=== PATIENT | female | born 2000 | race Caucasian/White ===

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

== ENCOUNTER 2020-02-03 12:41 | Emergency (ER) | payer OTHER ==
[~2020-02-03] VITALS: Ht 160 cm; Wt 74.8 kg
[2020-02-03 13:58] LABS: BASOPHILS ABSOLUTE AUTO 0.02 K/mm3 (0.00-0.23); BASOPHILS PERCENT AUTO 0 % (0-2); EOSINOPHILS ABSOLUTE AUTO 0.09 K/mm3 (0.00-0.68); EOSINOPHILS PERCENT AUTO 1 % (0-6); Hematocrit 41.4 % (33.0-51.0); Hemoglobin 14.2 g/dL (11.5-16.0); IMMATURE GRAN ABSOLUTE AUTO 0.02 K/mm3 (0.00-0.10); IMMATURE GRAN PERCENT AUTO 0 % (0-1); LYMPHOCYTES ABSOLUTE AUTO 2.69 K/mm3 (0.84-5.20); LYMPHOCYTES PERCENT AUTO 31 % (21-46); MONOCYTES ABSOLUTE AUTO 0.51 K/mm3 (0.16-1.47); MONOCYTES PERCENT AUTO 6 % (4-13); Mean Corpuscular HGB 30.3 pg (26.0-34.0); Mean Corpuscular HGB Conc 34.3 g/dL (31.5-36.5); Mean Corpuscular Volume 89 fL (80-100); Mean Platelet Volume 10.5 fL (9.1-12.4); NEUTROPHILS ABSOLUTE AUTO 5.33 K/mm3 (1.96-9.15); NEUTROPHILS PERCENT AUTO 62 % (41-73); Platelet Count 268 K/mm3 (150-400); RDW Coefficient Variation 11.9 % (11.7-14.2); RDW Standard Deviation 38.1 fL (35.1-46.3); Red Blood Cell Count 4.68 M/mm3 (3.80-5.20); White Blood Cell Count 8.66 K/mm3 (4.00-11.30)
[2020-02-03 14:19] LABS: Anion Gap 7 mmol/L (6-16); Beta HCG, Quantitative, Serum 17 mIU/mL (0-3); Blood Urea Nitrogen 10 mg/dL (8-24); Bun/Creatinine Ratio 12.3 (12.0-20.0); CO2, Blood 24 mmol/L (21-32); Chloride, Blood 108 mmol/L (98-108); Creatinine, Blood 0.81 mg/dL (0.40-1.00); Glomerular Filtration Rate >60 (60-); Glucose, Blood 85 mg/dL (70-99); Potassium, Blood 3.5 mmol/L (3.5-5.5); Sodium, Blood 139 mmol/L (136-145)
[2020-02-03] MEDS ORDERED: IBUP800 PO (15:22)
== END 2020-02-03 15:15 | disposition home or self-care (01) ==
LOC: ER 12:41
PROVIDERS: Physician Assistant
DX: O03.9 Complete or unspecified spontaneous abortion without complication (principal); Z88.0 Allergy status to penicillin
CPT/HCPCS: 36415; 76801; 76817; 80048; 84702; 85025; 99284-25

== ENCOUNTER → 2020-12-16 | Outpatient (CLI) | payer OTHER ==
[~2020-12-16] MED LIST changes: +IBUP800 PO
[2020-12-16 17:18] LABS: U Amphetamine Screen Not Detected; U Barbituate Screen Not Detected; U Benzodiazapine Screen Not Detected; U Buprenorphine Screen Not Detected; U Cannabinoids Screen Not Detected; U Cocaine Screen Not Detected; U Methadone Screen Not Detected; U Methamphetamine Screen Not Detected; U Opiates Screen Not Detected; U Oxycodone Screen Not Detected; U Phencyclidine Screen Not Detected; U Propoxyphene Screen Not Detected
[2020-12-18 01:08] LABS: CHLAMYDIA TRACHOMATIS, NAA Negative (Negative)
== END ==
LOC: LAB SHORT 14:02 → LAB 14:02
PROVIDERS: Advanced Practice Midwife
DX: Z01.419 Encounter for gynecological examination (general) (routine) without abnormal findings (principal); Z88.0 Allergy status to penicillin
CPT/HCPCS: 87491; 87591; G0123

== ENCOUNTER → 2021-03-08 | Outpatient (CLI) | payer OTHER ==
[2021-03-09 11:03] LABS: Candida species (DNA Probe) Negative (NEGATIVE); G. vaginalis (DNA Probe) Negative (NEGATIVE); T. vaginalis (DNA Probe) Negative (NEGATIVE)
== END | disposition home or self-care (01) ==
LOC: LAB SHORT 17:18 → LAB 17:18
PROVIDERS: Obstetrics & Gynecology
DX: N89.8 Other specified noninflammatory disorders of vagina (principal)
CPT/HCPCS: 87480; 87510; 87660

== ENCOUNTER 2021-04-15 17:02 | Inpatient (IN) | payer OTHER ==
[~2021-04-15] VITALS: Ht 160 cm; Wt 84.0 kg
--- NOTE | 2021-04-15 17:21 | NUR ---
pt here for possible induction, is 28 11/23, baby is reported to be noncompatible with life, dr jacobo is contacting oren rossi head of ethics for the decision.
--- NOTE | 2021-04-15 17:50 | NUR ---
LATE ENTRY NEW ORDERS FROM DR ARANDA: START SEVERE HTN PROTOCOL LABETALOL WHEN GET IV ACCESS.(CALLED ICU FOR ULTRASOUND IV DUE TO NOT BEING ABLE TO FIND A VEIN QUICKELY) START MAGNESIUM SULFATE 4GM LOAD DOSE WITH 2GGM/HR TO FOLLOW
[2021-04-15 18:39] LABS: BASOPHILS ABSOLUTE AUTO 0.04 K/mm3 (0.00-0.23); BASOPHILS PERCENT AUTO 0 % (0-2); EOSINOPHILS ABSOLUTE AUTO 0.06 K/mm3 (0.00-0.68); EOSINOPHILS PERCENT AUTO 1 % (0-6); Hematocrit 32.2 % (33.0-51.0); Hemoglobin 11.4 g/dL (11.5-16.0); IMMATURE GRAN ABSOLUTE AUTO 0.05 K/mm3 (0.00-0.10); IMMATURE GRAN PERCENT AUTO 0 % (0-1); LYMPHOCYTES ABSOLUTE AUTO 2.58 K/mm3 (0.84-5.20); LYMPHOCYTES PERCENT AUTO 20 % (21-46); MONOCYTES ABSOLUTE AUTO 0.63 K/mm3 (0.16-1.47); MONOCYTES PERCENT AUTO 5 % (4-13); Mean Corpuscular HGB 31.2 pg (26.0-34.0); Mean Corpuscular HGB Conc 35.4 g/dL (31.5-36.5); Mean Corpuscular Volume 88 fL (80-100); Mean Platelet Volume 12.2 fL (9.1-12.4); NEUTROPHILS PERCENT AUTO 75 % (41-73); Platelet Count 186 K/mm3 (150-400); RDW Coefficient Variation 12.2 % (11.7-14.2); RDW Standard Deviation 39.5 fL (35.1-46.3); Red Blood Cell Count 3.65 M/mm3 (3.80-5.20); White Blood Cell Count 13.26 K/mm3 (4.00-11.30)
[2021-04-15 18:56] LABS: Influenza A, PCR NEGATIVE (NEGATIVE); Influenza B, PCR NEGATIVE (NEGATIVE); Resp Syncytial Virus, PCR NEGATIVE (NEGATIVE); SARS-Cov-2 (COVID-19) PCR, MMC NEGATIVE (NEGATIVE)
[2021-04-15] MEDS ORDERED: PRENATAL TABLE1 EAC2 (19:21)
[2021-04-15 19:33] LABS: Albumin/Globulin Ratio 0.5 (0.8-1.8); Bilirubin, Total 0.3 mg/dL (0.1-1.0); Bun/Creatinine Ratio 17.5 (12.0-20.0); Calcium, Blood 8.5 mg/dL (8.5-10.1); Creatinine, Blood 1.2 mg/dL (0.40-1.00); Potassium, Blood 3.7 mmol/L (3.5-5.5)
[2021-04-16 08:00] LABS: BASOPHILS ABSOLUTE AUTO 0.04 K/mm3 (0.00-0.23); BASOPHILS PERCENT AUTO 0 % (0-2); EOSINOPHILS PERCENT AUTO 0 % (0-6); Hematocrit 31.6 % (33.0-51.0); Hemoglobin 11.1 g/dL (11.5-16.0); IMMATURE GRAN PERCENT AUTO 1 % (0-1); LYMPHOCYTES ABSOLUTE AUTO 1.61 K/mm3 (0.84-5.20); LYMPHOCYTES PERCENT AUTO 8 % (21-46); MONOCYTES ABSOLUTE AUTO 0.39 K/mm3 (0.16-1.47); MONOCYTES PERCENT AUTO 2 % (4-13); Mean Corpuscular HGB 30.9 pg (26.0-34.0); Mean Corpuscular HGB Conc 35.1 g/dL (31.5-36.5); Mean Corpuscular Volume 88 fL (80-100); Mean Platelet Volume 11.8 fL (9.1-12.4); NEUTROPHILS ABSOLUTE AUTO 17.42 K/mm3 (1.96-9.15); NEUTROPHILS PERCENT AUTO 89 % (41-73); Platelet Count 195 K/mm3 (150-400); RDW Standard Deviation 38.7 fL (35.1-46.3); Red Blood Cell Count 3.59 M/mm3 (3.80-5.20); White Blood Cell Count 19.56 K/mm3 (4.00-11.30)
[2021-04-16 08:21] LABS: Alanine Aminotransfer (ALT/SGP 12 U/L (12-78); Albumin, Blood 1.8 g/dL (3.4-5.0); Albumin/Globulin Ratio 0.5 (0.8-1.8); Alk Phos 258 U/L (50-136); Anion Gap 8 mmol/L (6-16); Aspartate Aminotrans (AST/SGOT 15 U/L (12-37); Bilirubin, Total 0.2 mg/dL (0.1-1.0); Blood Urea Nitrogen 17 mg/dL (8-24); CO2, Blood 20 mmol/L (21-32); Calcium, Blood 7.8 mg/dL (8.5-10.1); Chloride, Blood 108 mmol/L (98-108); Globulin, Blood 3.8 g/dL (2.2-4.0); Glomerular Filtration Rate >60 (60-); Glucose, Blood 117 mg/dL (70-99); Potassium, Blood 4.7 mmol/L (3.5-5.5); Sodium, Blood 136 mmol/L (136-145); Total Protein, Blood 5.6 g/dL (6.4-8.2)
--- NOTE | 2021-04-16 13:15 | NUR ---
MOMS BLOOD DRAWN PER [facility] REQUEST. PAPER WORK WITH MOMS BLOOD, WALKED AND GAVE TO LAB, THEY ADDED BABY CORD BLOOD AND WERE PLANNING SENDIG OUT TODAY TO [facility]
[2021-04-16] MEDS ORDERED: Percocet 5-3251 EACH PO (13:56)
--- NOTE | 2021-04-16 15:55 | NUR ---
CORE REFERRAL FAXED, PT REQUESTED IT AND WANTS ALL THE HELP SHE CAN GET SHE REPORTS, COMPASSIONATE FRIENDS PAPER WORK SIGNED AND IN AWRN BOX
--- NOTE | 2021-04-16 18:05 | NUR ---
MAGNESIUM SULFATE 2GM STOPPED, LR AT 50CC/HR STOPPED, POWERGLIDE SL FLUSHED EACH PORT WITH 10CC NS.
[2021-04-17 05:25] LABS: Hematocrit 30.7 % (33.0-51.0); Hemoglobin 10.7 g/dL (11.5-16.0); Mean Corpuscular HGB 31.5 pg (26.0-34.0); Mean Corpuscular HGB Conc 34.9 g/dL (31.5-36.5); Mean Corpuscular Volume 90 fL (80-100); Mean Platelet Volume 11.2 fL (9.1-12.4); Platelet Count 185 K/mm3 (150-400); RDW Coefficient Variation 12.6 % (11.7-14.2); RDW Standard Deviation 41.4 fL (35.1-46.3); White Blood Cell Count 15.68 K/mm3 (4.00-11.30)
[2021-04-17 05:49] LABS: Alanine Aminotransfer (ALT/SGP 9 U/L (12-78); Albumin, Blood 1.6 g/dL (3.4-5.0); Albumin/Globulin Ratio 0.5 (0.8-1.8); Alk Phos 209 U/L (50-136); Anion Gap 6 mmol/L (6-16); Aspartate Aminotrans (AST/SGOT 15 U/L (12-37); Bilirubin, Total 0.3 mg/dL (0.1-1.0); Blood Urea Nitrogen 14 mg/dL (8-24); Bun/Creatinine Ratio 14.1 (12.0-20.0); CO2, Blood 23 mmol/L (21-32); Calcium, Blood 6.7 mg/dL (8.5-10.1); Chloride, Blood 108 mmol/L (98-108); Creatinine, Blood 0.99 mg/dL (0.40-1.00); Globulin, Blood 3.5 g/dL (2.2-4.0); Glomerular Filtration Rate >60 (60-); Glucose, Blood 81 mg/dL (70-99); Potassium, Blood 4.1 mmol/L (3.5-5.5); Sodium, Blood 137 mmol/L (136-145); Total Protein, Blood 5.1 g/dL (6.4-8.2)
--- NOTE | 2021-04-17 13:23 | NUR ---
PT DISCHARGED FROM HOSPITAL TO HOME. PT WALKED OUT WITH LIZ'S AND BABY IN ARMS. PICC LINE REMOVED. DISCHARGE INSTRUCTIONS GIVEN AND SIGNED. NO QUESTIONS OR CONCERNS AT THIS TIME. PT ADVISED TO CALL [facility] IF THERE ARE ANY QUESTIONS OR CONCERNS. PP F/U APT IS 04-20-21 @[id number]
== END 2021-04-17 13:10 | disposition home or self-care (01) | DRG 788 ==
LOC: OBS 17:02 → BC 17:02 → OBS 17:41 → BC 17:42
PROVIDERS: ADMIT Obstetrics & Gynecology
PROC: 10D00Z1 Extraction of Products of Conception, Low, Open Approach (ICD-10-PCS; principal; 2021-04-15 20:00)
DX: O14.14 Severe pre-eclampsia complicating childbirth (principal); Z37.1 Single stillbirth; Z3A.28 28 weeks gestation of pregnancy; Z20.822 Contact with and (suspected) exposure to COVID-19; O32.1XX0 Maternal care for breech presentation, not applicable or unspecified; O35.0XX0 Maternal care for (suspected) central nervous system malformation in fetus, not applicable or unspecified; O36.5930 Maternal care for other known or suspected poor fetal growth, third trimester, not applicable or unspecified; O36.8930 Maternal care for other specified fetal problems, third trimester, not applicable or unspecified; Z88.0 Allergy status to penicillin; Z91.040 Latex allergy status; Z79.82 Long term (current) use of aspirin; Z79.899 Other long term (current) drug therapy
CPT/HCPCS: 0241U; 36415; 80053; 85025; 85027; 86850; 86900; 86901; A9270; C1751; J0171; J0690; J1100; J2001; J2370; J2405; J2590; J2765; J3010; J3475; J7120

== ENCOUNTER → 2021-09-28 | Outpatient (CLI) | payer OTHER ==
[~2021-09-28] MED LIST changes: +PRENATAL TABLE1 EAC2; +Percocet 5-3251 EACH PO
[2021-09-28 18:07] LABS: Source, Urine Clean Catch
[2021-09-28 20:15] LABS: Appearance, Urine Cloudy (Clear); Bilirubin, Urine Neg (Neg); Blood, Urine 1+ (Neg); Color, Urine Yellow (P-Yellow); Glucose Qualitative, Urine Neg (Neg); Ketones, Urine Neg (Neg); Leukocyte Esterase, Urine 2+ (Neg); Nitrite, Urine Neg (Neg); Protein, Urine 3+ (Neg); Specific Gravity, Urine 1.015 (1.003-1.022); Urobilinogen, Urine NORM (Normal)
[2021-09-28 21:12] LABS: Bacteria Many /hpf; Squamous Epithelial Cells Few /hpf (Few)
[2021-09-28 21:13] LABS: Amorphous Light (0-Heavy)
== END | disposition home or self-care (01) ==
LOC: LAB SHORT 18:04
PROVIDERS: Obstetrics & Gynecology
DX: R30.9 Painful micturition, unspecified (principal)
CPT/HCPCS: 81001; 87077; 87086; 87186

== ENCOUNTER 2021-10-30 15:49 | Emergency (ER) | payer OTHER ==
[~2021-10-30] VITALS: Ht 160 cm; Wt 72.1 kg
[2021-10-30 16:47] LABS: BASOPHILS ABSOLUTE AUTO 0.04 K/mm3 (0.00-0.23); BASOPHILS PERCENT AUTO 0 % (0-2); EOSINOPHILS ABSOLUTE AUTO 0.07 K/mm3 (0.00-0.68); EOSINOPHILS PERCENT AUTO 1 % (0-6); Hematocrit 42.4 % (33.0-51.0); Hemoglobin 14.5 g/dL (11.5-16.0); IMMATURE GRAN ABSOLUTE AUTO 0.03 K/mm3 (0.00-0.10); IMMATURE GRAN PERCENT AUTO 0 % (0-1); LYMPHOCYTES ABSOLUTE AUTO 2.42 K/mm3 (0.84-5.20); LYMPHOCYTES PERCENT AUTO 22 % (21-46); MONOCYTES ABSOLUTE AUTO 0.58 K/mm3 (0.16-1.47); MONOCYTES PERCENT AUTO 5 % (4-13); Mean Corpuscular HGB Conc 34.2 g/dL (31.5-36.5); Mean Corpuscular Volume 88 fL (80-100); Mean Platelet Volume 10.6 fL (9.1-12.4); NEUTROPHILS ABSOLUTE AUTO 7.65 K/mm3 (1.96-9.15); NEUTROPHILS PERCENT AUTO 71 % (41-73); Platelet Count 294 K/mm3 (150-400); RDW Coefficient Variation 12.2 % (11.7-14.2); RDW Standard Deviation 39.5 fL (35.1-46.3); Red Blood Cell Count 4.83 M/mm3 (3.80-5.20); White Blood Cell Count 10.79 K/mm3 (4.00-11.30)
== END 2021-10-30 18:46 | disposition home or self-care (01) ==
LOC: ER 15:49
PROVIDERS: Physician Assistant
DX: F32.A Depression, unspecified (principal); F43.21 Adjustment disorder with depressed mood; Z88.0 Allergy status to penicillin
CPT/HCPCS: 85025

== ENCOUNTER → 2022-01-21 | Outpatient (CLI) | payer OTHER ==
[2022-01-21 13:12] LABS: Source, Urine Clean Catch
[2022-01-21 14:04] LABS: Appearance, Urine Hazy (Clear); Bilirubin, Urine Neg (Neg); Blood, Urine Neg (Neg); Color, Urine Yellow (P-Yellow); Glucose Qualitative, Urine Neg (Neg); Ketones, Urine Neg (Neg); Leukocyte Esterase, Urine 1+ (Neg); Nitrite, Urine Neg (Neg); Protein, Urine 3+ (Neg); Specific Gravity, Urine 1.015 (1.003-1.022); Urobilinogen, Urine NORM (Normal)
[2022-01-21 14:32] LABS: Bacteria Mod /hpf; Red Blood Cells, Urine 0-2 /hpf (0-2); Squamous Epithelial Cells Many /hpf (Few)
== END | disposition home or self-care (01) ==
LOC: LAB SHORT 13:05 → LAB 13:05
PROVIDERS: Obstetrics & Gynecology
DX: R30.9 Painful micturition, unspecified (principal)
CPT/HCPCS: 81001; 87086

== ENCOUNTER 2022-08-05 07:30 | Inpatient (IN) | payer OTHER ==
[2022-08-05 09:07] LABS: BASOPHILS ABSOLUTE AUTO 0.04 K/mm3 (0.00-0.23); BASOPHILS PERCENT AUTO 0 % (0-2); EOSINOPHILS ABSOLUTE AUTO 0.05 K/mm3 (0.00-0.68); EOSINOPHILS PERCENT AUTO 0 % (0-6); Hematocrit 35.1 % (33.0-51.0); Hemoglobin 12.7 g/dL (11.5-16.0); IMMATURE GRAN ABSOLUTE AUTO 0.09 K/mm3 (0.00-0.10); IMMATURE GRAN PERCENT AUTO 1 % (0-1); LYMPHOCYTES ABSOLUTE AUTO 2.99 K/mm3 (0.84-5.20); LYMPHOCYTES PERCENT AUTO 20 % (21-46); MONOCYTES PERCENT AUTO 5 % (4-13); Mean Corpuscular HGB 32.6 pg (26.0-34.0); Mean Corpuscular HGB Conc 36.2 g/dL (31.5-36.5); Mean Corpuscular Volume 90 fL (80-100); Mean Platelet Volume 11.5 fL (9.1-12.4); NEUTROPHILS PERCENT AUTO 74 % (41-73); Platelet Count 188 K/mm3 (150-400); RDW Coefficient Variation 12.4 % (11.7-14.2); RDW Standard Deviation 40.3 fL (35.1-46.3); White Blood Cell Count 15.07 K/mm3 (4.00-11.30)
[2022-08-05 09:19] LABS: Albumin, Blood 2.3 g/dL (3.4-5.0); Albumin/Globulin Ratio 0.6 (0.8-1.8); Bilirubin, Total 0.5 mg/dL (0.1-1.0); Bun/Creatinine Ratio 15.9 (12.0-20.0); Calcium, Blood 8.9 mg/dL (8.5-10.1); Creatinine, Blood 0.69 mg/dL (0.40-1.00); Globulin, Blood 4.1 g/dL (2.2-4.0); Potassium, Blood 3.6 mmol/L (3.5-5.5); Total Protein, Blood 6.4 g/dL (6.4-8.2)
--- NOTE | 2022-08-05 09:41 | NUR ---
powerglyde iv inserted rt upper forearm by Helen RN, Pt tolerated well
--- NOTE | 2022-08-05 11:33 | NUR ---
08/05/22 1133 EVETTE DICKENS A VIABLE BABY BOY BORN AT 1103. WT 2650 G, LENGTH 19, 9/9. CORD BLOOD GIVEN TO ARNAV ESTRELLA RN. PLACENTA BAGGED AND PLACED IN SOILED HOLD. SKIN TO SKIN WITH MOM AFTER INITIAL ASSESSMENTS.
--- NOTE | 2022-08-06 07:17 | NUR ---
PT HAD AN [id number] BLOOD PRESSURE THIS MORNING. BP WAS CHECKED MANUALLY AND BP WAS LOWER. MEDIUM BP CUFF IS CLOSE TO BEING TOO SMALL ON PT. LARGE BP CUFF FITS MORE APPROPRIATELY AND WAS USED AFTER INITIAL HIGH BP.
[2022-08-06 07:49] LABS: BASOPHILS ABSOLUTE AUTO 0.03 K/mm3 (0.00-0.23); BASOPHILS PERCENT AUTO 0 % (0-2); EOSINOPHILS ABSOLUTE AUTO 0.07 K/mm3 (0.00-0.68); EOSINOPHILS PERCENT AUTO 1 % (0-6); Hematocrit 31.4 % (33.0-51.0); Hemoglobin 11.1 g/dL (11.5-16.0); IMMATURE GRAN ABSOLUTE AUTO 0.07 K/mm3 (0.00-0.10); IMMATURE GRAN PERCENT AUTO 1 % (0-1); LYMPHOCYTES ABSOLUTE AUTO 2.93 K/mm3 (0.84-5.20); LYMPHOCYTES PERCENT AUTO 20 % (21-46); MONOCYTES ABSOLUTE AUTO 0.76 K/mm3 (0.16-1.47); MONOCYTES PERCENT AUTO 5 % (4-13); Mean Corpuscular HGB 32.5 pg (26.0-34.0); Mean Corpuscular HGB Conc 35.4 g/dL (31.5-36.5); Mean Corpuscular Volume 92 fL (80-100); Mean Platelet Volume 11.7 fL (9.1-12.4); NEUTROPHILS ABSOLUTE AUTO 11.19 K/mm3 (1.96-9.15); NEUTROPHILS PERCENT AUTO 74 % (41-73); Platelet Count 180 K/mm3 (150-400); RDW Coefficient Variation 12.5 % (11.7-14.2); RDW Standard Deviation 41.5 fL (35.1-46.3); Red Blood Cell Count 3.42 M/mm3 (3.80-5.20); White Blood Cell Count 15.05 K/mm3 (4.00-11.30)
--- NOTE | 2022-08-07 10:15 | NUR ---
DISCHARGE DISCHARGE HOME STABLE. VERBALIZES UNDERSTANDING OF DC INSTRUCTIONS AND FOLLOW UP APPOINTMENTS. LOCHIA SCANT. CARING FOR SELF AND BABY INDEPENDANTLY. VSS.
== END 2022-08-07 10:40 | disposition home or self-care (01) | DRG 787 ==
LOC: BC 08:02
PROVIDERS: ADMIT Obstetrics & Gynecology
PROC: 10D00Z1 Extraction of Products of Conception, Low, Open Approach (ICD-10-PCS; principal; 2022-08-05 10:45)
DX: O34.211 Maternal care for low transverse scar from previous cesarean delivery (principal); O10.92 Unspecified pre-existing hypertension complicating childbirth; O99.324 Drug use complicating childbirth; O99.344 Other mental disorders complicating childbirth; F41.8 Other specified anxiety disorders; F12.10 Cannabis abuse, uncomplicated; O99.814 Abnormal glucose complicating childbirth; Z3A.38 38 weeks gestation of pregnancy; Z37.0 Single live birth; Z79.899 Other long term (current) drug therapy; Z79.82 Long term (current) use of aspirin; Z79.2 Long term (current) use of antibiotics; Z87.440 Personal history of urinary (tract) infections
CPT/HCPCS: 36415; 80053; 82947; 85025; 86850; 86900; 86901; A9270; J0690; J1885; J2370; J2405; J2765; J3010; J3360; J7120

== ENCOUNTER → 2023-01-02 | Outpatient (CLI) | payer OTHER ==
[2023-01-02 14:35] LABS: Source, Urine Clean Catch
[2023-01-02 18:07] LABS: Appearance, Urine Hazy (Clear); Bilirubin, Urine Neg (Neg); Blood, Urine Neg (Neg); Color, Urine Yellow (P-Yellow); Glucose Qualitative, Urine Neg (Neg); Ketones, Urine Neg (Neg); Leukocyte Esterase, Urine Neg (Neg); Nitrite, Urine Neg (Neg); Protein, Urine 3+ (Neg); Urobilinogen, Urine NORM (Normal); pH, Urine 6.5 (5.0-8.0)
[2023-01-02 18:44] LABS: Bacteria Many /hpf; Red Blood Cells, Urine 0-2 /hpf (0-2); Squamous Epithelial Cells Mod /hpf (Few)
== END | disposition home or self-care (01) ==
LOC: LAB SHORT 14:31
PROVIDERS: Obstetrics & Gynecology
DX: R30.0 Dysuria (principal)
CPT/HCPCS: 81001; 87077; 87086; 87186

== ENCOUNTER → 2023-05-26 | Outpatient (CLI) | payer OTHER ==
[2023-05-26 17:45] LABS: Source, Urine Clean Catch
[2023-05-26 18:27] LABS: Appearance, Urine Cloudy (Clear); Bilirubin, Urine Neg (Neg); Blood, Urine 2+ (Neg); Color, Urine Amber (P-Yellow); Glucose Qualitative, Urine Neg (Neg); Ketones, Urine Neg (Neg); Leukocyte Esterase, Urine 2+ (Neg); Nitrite, Urine Neg (Neg); Protein, Urine 3+ (Neg); Specific Gravity, Urine 1.025 (1.003-1.022); Urobilinogen, Urine NORM (Normal)
[2023-05-26 18:36] LABS: Amorphous Heavy (0-Heavy); Bacteria Many /hpf; Squamous Epithelial Cells Mod /hpf (Few); Transitional Epithelial Cells Rare /hpf (0-Rare)
== END ==
LOC: LAB SHORT 17:43 → LAB 17:43
PROVIDERS: Obstetrics & Gynecology
DX: R30.9 Painful micturition, unspecified (principal)
CPT/HCPCS: 81001; 87086

== ENCOUNTER → 2023-06-26 | Outpatient (CLI) | payer OTHER ==
[2023-06-26 13:56] LABS: Source, Urine Clean Catch
[2023-06-26 16:07] LABS: Bilirubin, Urine Neg (Neg); Blood, Urine 1+ (Neg); Glucose Qualitative, Urine Neg (Neg); Ketones, Urine Neg (Neg); Leukocyte Esterase, Urine 2+ (Neg); Nitrite, Urine Pos (Neg); Protein, Urine 3+ (Neg); Urobilinogen, Urine 1+ (Normal)
[2023-06-26 16:19] LABS: Appearance, Urine Hazy (Clear); Color, Urine Yellow (P-Yellow)
[2023-06-26 16:20] LABS: Bacteria Many /hpf; Squamous Epithelial Cells Few /hpf (Few); White Blood Cells, Urine 25-50 /hpf (0-5)
== END | disposition home or self-care (01) ==
LOC: LAB 13:54 → LAB SHORT 13:54
PROVIDERS: Obstetrics & Gynecology
DX: R30.9 Painful micturition, unspecified (principal)
CPT/HCPCS: 81001; 87077; 87086; 87186

== ENCOUNTER → 2024-02-22 | Outpatient (CLI) | payer OTHER | END | disposition home or self-care (01) | LOC: LAB 12:20 → LAB SHORT 12:20 | DX: N39.0 Urinary tract infection, site not specified (principal) | CPT/HCPCS: 87077; 87086; 87186 ==

== ENCOUNTER → 2024-09-20 | Outpatient (CLI) | payer OTHER ==
[2024-09-20 15:52] LABS: Candida Group, PCR NOT DETECTED (NOT DETECT); Candida glabrata-krusei, PCR NOT DETECTED (NOT DETECT)
[2024-09-20 16:26] LABS: Bacterial Vaginosis PCR Positive (NEGATIVE)
[2024-09-23 16:15] LABS: APTIMA MEDIA TYPE MultiTest Swab; C. TRACHOMATIS BY TMA Negative (Negative); N. GONORRHOEAE BY TMA Negative (Negative); SPECIMEN SOURCE Not Provided
== END ==
LOC: LAB SHORT 12:59 → LAB 12:59
PROVIDERS: Family Medicine
DX: Z01.419 Encounter for gynecological examination (general) (routine) without abnormal findings (principal)
CPT/HCPCS: 81515; 87491; 87591; G0123

== ENCOUNTER → 2024-09-25 | Outpatient (CLI) | payer OTHER | LOC: LAB 11:04 → LAB SHORT 11:04 | DX: J02.9 Acute pharyngitis, unspecified (principal) | CPT/HCPCS: 87081 ==

== ENCOUNTER → 2025-02-28 | Outpatient (CLI) | payer OTHER | LOC: LAB 17:20 → LAB SHORT 17:20 | DX: R35.0 Frequency of micturition (principal) | CPT/HCPCS: 87086 ==

== ENCOUNTER → 2025-03-25 | Outpatient (CLI) | payer OTHER | LOC: LAB 18:54 → LAB SHORT 18:54 | DX: N30.00 Acute cystitis without hematuria (principal); R30.0 Dysuria | CPT/HCPCS: 87077; 87086; 87147; 87186 ==

== ENCOUNTER → 2025-04-03 | Outpatient (CLI) | payer OTHER ==
[2025-04-03 19:49] LABS: Chlamydia Trachomatis Urine NOT DETECTED (NOT DETECT); Neisseria Gonorrhoea Urine NOT DETECTED (NOT DETECT)
== END ==
LOC: LAB 15:32 → LAB SHORT 15:32
PROVIDERS: Family Medicine
DX: Z11.3 Encounter for screening for infections with a predominantly sexual mode of transmission (principal)
CPT/HCPCS: 87491; 87591

== ENCOUNTER → 2025-05-13 | Outpatient (CLI) | payer OTHER | END | disposition home or self-care (01) | LOC: LAB 18:42 → LAB SHORT 18:42 | DX: J02.9 Acute pharyngitis, unspecified (principal) | CPT/HCPCS: 87081 ==

== ENCOUNTER 2025-06-11 13:28 | Emergency (ER) | payer OTHER | END 2025-06-11 13:50 | disposition left against medical advice (07) | LOC: ER 13:28 | DX: M54.9 Dorsalgia, unspecified (principal); R11.0 Nausea; R53.83 Other fatigue; R30.0 Dysuria; Z53.21 Procedure and treatment not carried out due to patient leaving prior to being seen by health care provider ==

== ENCOUNTER → 2025-06-13 | Outpatient (CLI) | payer OTHER | LOC: LAB 08:26 → LAB SHORT 08:26 | DX: R30.0 Dysuria (principal) | CPT/HCPCS: 87077; 87086; 87186 ==